=== PATIENT | female | born 1995 | race Caucasian/White ===

== ENCOUNTER 2019-03-13 07:45 | Emergency (ER) | payer BC, OTHER ==
[~2019-03-13] VITALS: Ht 170.2 cm; Wt 61.4 kg
[2019-03-13] MEDS ORDERED: SRONYX PO (08:03)
[2019-03-13] MEDS ORDERED: ONDANSETRON 4MG/2ML VIAL (J2405) IV ONE (09:00)
[2019-03-13] MEDS ORDERED: KETOROLAC 30 MG/ML VIAL (J1885) IV ONE (09:00)
[2019-03-13] MEDS ORDERED: NS 1,000 ML IV ONE (09:00)
[2019-03-13 09:35] LABS: BASO % 0.3 % (0.0-1.0); EOS % 0.1 % (0.0-3.0); HEMATOCRIT 39.9 % (36.0-47.0); HEMOGLOBIN 13.9 g/dl (12.0-15.5); LYMPH % 7.2 % (24.0-44.0); MEAN CORPUSCULAR HEMOGLOBIN 30.8 pg (27.0-33.0); MEAN CORPUSCULAR HGB CONC 34.8 g/dl (32.0-36.5); MEAN CORPUSCULAR VOLUME 88.5 fl (80.0-96.0); MONO # 1.1 10^3/uL (0.0-0.8); MONO % 7.9 % (0.0-5.0); NEUTROPHILS # 11.6 10^3/uL (1.8-7.7); NEUTROPHILS % 84.1 % (36.0-66.0); PLATELET COUNT, AUTOMATED 200 10^3/uL (150-450); RED BLOOD COUNT 4.51 10^6/uL (4.00-5.40); WHITE BLOOD COUNT 13.8 10^3/uL (4.0-10.0)
[2019-03-13 10:02] LABS: ALBUMIN 3.9 GM/DL (3.2-5.2); ALT/SGPT 17 U/L (12-78); BILIRUBIN,DIRECT 0.2 MG/DL (0.0-0.2); BILIRUBIN,TOTAL 0.7 MG/DL (0.2-1.0); BLOOD UREA NITROGEN 9 MG/DL (7-18); CALCIUM LEVEL 8.8 MG/DL (8.5-10.1); CARBON DIOXIDE LEVEL 27 MEQ/L (21-32); CHLORIDE LEVEL 104 MEQ/L (98-107); CREATININE FOR GFR 0.72 MG/DL (0.55-1.30); GLOMERULAR FILTRATION RATE > 60.0 (>60); GLUCOSE, FASTING 100 MG/DL (70-100); LIPASE 85 U/L (73-393); SODIUM LEVEL 137 MEQ/L (136-145); TOTAL PROTEIN 6.8 GM/DL (6.4-8.2)
[2019-03-13] MEDS ORDERED: ISOVUE-370 76% 100ML VIAL (Q9967) As Ordered ONE (10:27)
[2019-03-13] MEDS ORDERED: MORPHINE 4 MG/ML 1ML VIAL/SYRINGE (J2270) IV ONE (10:30)
[2019-03-13] MEDS ORDERED: MORPHINE 2 MG/ML 1ML SYRINGE (J2270) IV ONE (10:45)
--- NOTE | 2019-03-13 11:35 | REP ---
CT ABDOMEN/PELVIS WITH IV CONTRAST: TECHNIQUE: Axial contrast enhanced images from the lung bases to the pubic symphysis using 100 mL Isovue 370 intravenous contrast material with multiplanar reformations. Visualized lung bases demonstrate no infiltrate. There is a subcentimeter cyst in the right lobe of the liver. The spleen, adrenals, pancreas, and kidneys appear unremarkable. There is no hydronephrosis bilaterally. There is no abdominal aortic aneurysm. I see no adenopathy. There is no free air. There is trace free fluid in the pelvis, which is likely physiologic. I see no evidence of bowel wall thickening. The appendix appears normal. I see no evidence of a pelvic mass. There is a cyst in the left vaginal wall which is oval in shape and measures approximately 2.9 x 1.5 cm. Urinary bladder is mildly distended and grossly unremarkable. IMPRESSION: No free air. Trace free fluid in the pelvis is likely physiologic. No evidence of appendicitis. Appendix appears normal. No gross bowel wall thickening. Subcentimeter cyst in the liver. Left vaginal wall cyst. Electronically Signed by David Chan MD 03/13/2019 02:40 P
--- NOTE | 2019-03-13 12:14 | REP ---
Pelvic ultrasound including transabdominal, endovaginal and Doppler ultrasound assessment for right sided pelvic pain: Comparison is the abdomen and pelvis CT performed earlier this same date. The uterus is anteverted and normal size measuring 6.9 x 3.7 x 5.4 cm. The endometrium is not thickened measuring 3.1 mm. Right ovary: The right ovary is normal size measuring 3.0 x 1.8 x 3.4 cm. There is no dominant right ovarian mass or cyst. There is right ovarian vascular flow with the Doppler resistive index of the parenchymal arteries measuring 0.57. Left ovary: The left ovary is normal size measuring 3.0 x 2.3 x 2.4 cm. There is no dominant left ovarian mass or cyst. There is left ovarian vascular flow with the Doppler resistive index of the parenchymal arteries measuring 0.64. There is a trace of free fluid in the pelvis. Impression: There is vascular flow in both ovaries. There are no dominant ovarian masses or cysts. There is a trace of free fluid in the pelvis. Electronically Signed by David Mcguire MD 03/13/2019 12:06 P
[2019-03-13 14:49] LABS: CHLAMYDIA DNA AMPLIFICATION NEGATIVE (NEGATIVE); GC DNA AMPLIFICATION NEGATIVE (NEGATIVE)
[2019-03-13] MEDS ORDERED: ZOFR8TAB24 PO (15:07)
[2019-03-13 15:10] VITALS: BP 127/77
== END 2019-03-13 15:23 | disposition home or self-care (01) ==
LOC: M ED 07:45
DX: N89.8 Other specified noninflammatory disorders of vagina (principal); R10.2 Pelvic and perineal pain; R10.31 Right lower quadrant pain; Z86.19 Personal history of other infectious and parasitic diseases; Z87.448 Personal history of other diseases of urinary system; K76.89 Other specified diseases of liver; Z79.899 Other long term (current) drug therapy
CPT/HCPCS: 36415; 74177; 76830; 76856; 80048; 80076; 81001; 83605; 83690; 84702; 85025; 87210; 87252; 87661; 87880; 93976; 96361; 96374; 96375; 99284; J1885; J2270; J2405; Q9967

== ENCOUNTER 2021-12-12 19:00 | Emergency (ER) | payer BC, OTHER ==
[~2021-12-12] VITALS: Ht 170.2 cm; Wt 64.6 kg
[~2021-12-12 19:00] MED LIST: SRONYX PO; ZOFR8TAB24 PO
[2021-12-12] MEDS ORDERED: MEDR150I12 (19:28)
[2021-12-12] MEDS ORDERED: NS 1,000 ML IV ONE (20:30)
[2021-12-12] MEDS ORDERED: ONDANSETRON 4MG/2ML VIAL As Ordered ONE (20:57)
[2021-12-12 20:59] LABS: BASO % 0.6 % (0.0-1.0); EOS # 0.1 10^3/uL (0.0-0.5); EOS % 0.8 % (0.0-3.0); HEMATOCRIT 41.2 % (36.0-47.0); HEMOGLOBIN 14.7 g/dl (12.0-15.5); LYMPH # 1.8 10^3/uL (1.5-5.0); LYMPH % 25.6 % (24.0-44.0); MEAN CORPUSCULAR HEMOGLOBIN 30.9 pg (27.0-33.0); MEAN CORPUSCULAR HGB CONC 35.7 g/dl (32.0-36.5); MEAN CORPUSCULAR VOLUME 86.6 fl (80.0-96.0); MONO # 0.6 10^3/uL (0.0-0.8); MONO % 8.9 % (2.0-8.0); NEUTROPHILS # 4.5 10^3/uL (1.5-8.5); NEUTROPHILS % 63.7 % (36.0-66.0); PLATELET COUNT, AUTOMATED 293 10^3/uL (150-450); RED BLOOD COUNT 4.76 10^6/uL (4.00-5.40); WHITE BLOOD COUNT 7.1 10^3/uL (4.0-10.0)
[2021-12-12] MEDS ORDERED: ONDANSETRON 4MG/2ML VIAL IV ONE (21:10)
[2021-12-12 21:17] LABS: INR 1.03; PROTHROMBIN TIME 13.9 SECONDS (12.7-14.5)
[2021-12-12 21:18] LABS: PARTIAL THROMBOPLASTIN TIME 27.1 SECONDS (25.9-37.0)
[2021-12-12 21:21] LABS: D-DIMER QUANT < 270 ng/ml (<500)
[2021-12-12 21:36] LABS: BLOOD UREA NITROGEN 9 MG/DL (7-18); CALCIUM LEVEL 9.6 MG/DL (8.5-10.1); CARBON DIOXIDE LEVEL 26 MEQ/L (21-32); CHLORIDE LEVEL 106 MEQ/L (98-107); FREE T4 1.24 NG/DL (0.76-1.46); GLOMERULAR FILTRATION RATE > 60.0 (>60); GLUCOSE, FASTING 91 MG/DL (70-100); POTASSIUM SERUM 3.7 MEQ/L (3.5-5.1); SODIUM LEVEL 141 MEQ/L (136-145); THYROID STIMULATING HORMONE 0.805 uIU/ML (0.358-3.740)
[2021-12-12 22:28] VITALS: BP 132/74
== END 2021-12-12 22:30 | disposition home or self-care (01) ==
LOC: M ED 19:00
DX: J06.9 Acute upper respiratory infection, unspecified (principal); R19.7 Diarrhea, unspecified; R00.0 Tachycardia, unspecified
CPT/HCPCS: 71046; 80048; 84439; 84443; 84484; 84702; 85025; 85379; 85610; 85730; 87428; 87880; 93005; 96361; 96374; 99284; J2405

== ENCOUNTER → 2024-06-17 | Outpatient (REF) | payer OTHER ==
[~2024-06-17] MED LIST changes: +MEDR150I12
[2024-06-17 18:09] LABS: APPEARANCE, URINE HAZY (CLEAR); BACTERIA, URINE AUTO 1+ (NEGATIVE); BILIRUBIN, URINE AUTO NEGATIVE (NEGATIVE); BLOOD, URINE BLOOD NEGATIVE (NEGATIVE); COLOR, URINE YELLOW (YELLOW); GLUCOSE, URINE (UA) AUTO NEGATIVE (NEGATIVE); KETONE, URINE AUTO NEGATIVE (NEGATIVE); LEUKOCYTE ESTERASE, URINE AUTO NEGATIVE (NEGATIVE); MUCUS, URINE SMALL (NEGATIVE); NITRITE, URINE AUTO NEGATIVE (NEGATIVE); PROTEIN, URINE AUTO NEGATIVE (NEGATIVE); RBC, URINE AUTO 1 /HPF (0-3); SPECIFIC GRAVITY URINE AUTO 1.023 (1.002-1.035); SQUAMOUS EPITHELIAL CELL UR AU 9 /HPF (0-6); UROBILINOGEN, URINE AUTO 0.2 mg/dL (0.0-2.0); WBC, URINE AUTO 1 /HPF (0-3)
[2024-06-17 20:14] LABS: GC DNA AMPLIFICATION NEGATIVE (NEGATIVE)
[2024-06-17 21:35] LABS: Trichomonas vaginalis (AMP) NOT DETECTED (NEGATIVE)
== END ==
LOC: M LAB REF 16:28
PROVIDERS: ATTEND Physician Assistant
DX: N39.0 Urinary tract infection, site not specified (principal)

== ENCOUNTER 2024-09-04 10:54 | Emergency (ER) | payer OTHER ==
[~2024-09-04] VITALS: Ht 170.2 cm; Wt 65.6 kg
[2024-09-04 12:12] LABS: BASO % 0.3 % (0.0-1.0); EOS % 0.1 % (0.0-3.0); HEMATOCRIT 41.1 % (36.0-47.0); HEMOGLOBIN 14.8 g/dl (12.0-15.5); LYMPH # 0.9 10^3/uL (1.5-5.0); LYMPH % 11.1 % (24.0-44.0); MEAN CORPUSCULAR HEMOGLOBIN 31.6 pg (27.0-33.0); MEAN CORPUSCULAR VOLUME 87.8 fl (80.0-96.0); MONO # 0.6 10^3/uL (0.0-0.8); MONO % 7.2 % (2.0-8.0); NEUTROPHILS # 6.3 10^3/uL (1.5-8.5); PLATELET COUNT, AUTOMATED 269 10^3/uL (150-450); RED BLOOD COUNT 4.68 10^6/uL (4.00-5.40); WHITE BLOOD COUNT 7.8 10^3/uL (4.0-10.0)
[2024-09-04 12:59] LABS: ALBUMIN 4.1 G/DL (3.2-5.2); BILIRUBIN,DIRECT 0.2 MG/DL (<0.4); BILIRUBIN,TOTAL 0.5 MG/DL (0.3-1.2); TOTAL PROTEIN 7.1 G/DL (5.7-8.2)
[2024-09-04 13:22] LABS: HCG, SERUM QUANTITATIVE 1696.7 MIU/ML (<4.2)
[2024-09-04] MEDS: ONDANSETRON 4MG 2ML VIAL IV ONE (13:22)
[2024-09-04] MEDS: NS (Normal Saline) 0.9% 1,000 ML IV ONE (13:22)
[2024-09-04] MEDS ORDERED: ONDA-282 PO (15:03)
[2024-09-04] MEDS ORDERED: REGL10TA6 PO (15:03)
[2024-09-04 15:16] VITALS: BP 115/63; TEMP 96.7; O2SAT 100
== END 2024-09-04 15:21 | disposition home or self-care (01) ==
LOC: M ED 10:54
DX: O99.611 Diseases of the digestive system complicating pregnancy, first trimester (principal); Z3A.00 Weeks of gestation of pregnancy not specified; Z79.899 Other long term (current) drug therapy
CPT/HCPCS: 80047; 80076; 83690; 84702; 85025; 87486; 87581; 87633; 87798; 96361; 96374; 99284; J2405

== ENCOUNTER → 2024-10-16 | Outpatient (REF) | payer OTHER ==
[~2024-10-16] MED LIST changes: +ONDA-282 PO; +REGL10TA6 PO
== END ==
LOC: M PLALAB 08:55
PROVIDERS: ATTEND Nurse Practitioner Family
DX: Z34.01 Encounter for supervision of normal first pregnancy, first trimester (principal)

== ENCOUNTER → 2024-10-21 | Outpatient (CLI) | payer OTHER ==
[2024-10-21 10:25] LABS: HEMATOCRIT 38.5 % (36.0-47.0); HEMOGLOBIN 13.8 g/dl (12.0-15.5); MEAN CORPUSCULAR HEMOGLOBIN 31.7 pg (27.0-33.0); MEAN CORPUSCULAR HGB CONC 35.8 g/dl (32.0-36.5); MEAN CORPUSCULAR VOLUME 88.3 fl (80.0-96.0); PLATELET COUNT, AUTOMATED 256 10^3/uL (150-450); RED BLOOD COUNT 4.36 10^6/uL (4.00-5.40); WHITE BLOOD COUNT 7.6 10^3/uL (4.0-10.0)
[2024-10-21 11:23] LABS: HIV 1&2 SCREEN NEGATIVE (NEGATIVE)
[2024-10-21 11:31] LABS: HEPATITIS C VIRUS ABY INDEX 0.03 INDEX (<0.8)
[2024-10-21 11:57] LABS: Trichomonas vaginalis (AMP) NOT DETECTED (NEGATIVE)
[2024-10-21 12:19] LABS: GC DNA AMPLIFICATION NEGATIVE (NEGATIVE)
== END ==
LOC: M PLALAB 08:07
PROVIDERS: ATTEND Nurse Practitioner Family
DX: Z31.430 Encounter of female for testing for genetic disease carrier status for procreative management (principal)

== ENCOUNTER → 2024-12-11 | Outpatient (CLI) | payer OTHER ==
[~2024-12-11] MED LIST changes: -MEDR150I12; +MEDR150I15
== END ==
LOC: M WHC 10:03
PROVIDERS: ATTEND Advanced Practice Midwife
DX: Z34.02 Encounter for supervision of normal first pregnancy, second trimester (principal); Z3A.18 18 weeks gestation of pregnancy

== ENCOUNTER → 2025-02-07 | Outpatient (CLI) | payer OTHER ==
[2025-02-07 15:46] LABS: GLUCOSE CHALLENGE TEST 1 HOUR 104 MG/DL (LESS THAN 140)
[2025-02-07 15:47] LABS: PLATELET COUNT, AUTOMATED 217 10^3/uL (150-450)
[2025-02-07 16:16] LABS: HIV 1&2 SCREEN NEGATIVE (NEGATIVE)
[2025-02-07 16:24] LABS: HEPATITIS C VIRUS ABY INDEX < 0.02 INDEX (<0.8)
[2025-02-07 16:45] LABS: Trichomonas vaginalis (AMP) NOT DETECTED (NEGATIVE)
[2025-02-07 17:08] LABS: GC DNA AMPLIFICATION NEGATIVE (NEGATIVE)
== END ==
LOC: M PLALAB 12:18
PROVIDERS: ATTEND Nurse Practitioner Family
DX: Z34.80 Encounter for supervision of other normal pregnancy, unspecified trimester (principal)

== ENCOUNTER → 2025-04-18 | Outpatient (REF) | payer OTHER ==
[~2025-04-18] MED LIST changes: +PRENTAB9 PO
== END ==
LOC: M PLALAB 09:09
PROVIDERS: ATTEND Student in an Organized Health Care Education/Training Program
DX: Z36.85 Encounter for antenatal screening for Streptococcus B (principal); Z3A.37 37 weeks gestation of pregnancy

== ENCOUNTER 2025-04-29 18:57 | Emergency (ER) | payer OTHER ==
[~2025-04-29 18:57] MED LIST changes: -PRENTAB9 PO
== END 2025-04-29 19:19 | disposition admitted as inpatient to this hospital (09) ==
LOC: M ED 18:57
DX: Z53.21 Procedure and treatment not carried out due to patient leaving prior to being seen by health care provider (principal)

== ENCOUNTER 2025-04-29 19:07 | Outpatient (CLI) | payer OTHER ==
[~2025-04-29] VITALS: Ht 170.2 cm; Wt 88.9 kg
[2025-04-29] MEDS: LR 1,000 ML IV ONE (22:23)
== END 2025-04-29 23:19 | disposition home or self-care (01) ==
LOC: M LDO 19:07
PROVIDERS: ATTEND Student in an Organized Health Care Education/Training Program
DX: O47.1 False labor at or after 37 completed weeks of gestation (principal); Z3A.38 38 weeks gestation of pregnancy
CPT/HCPCS: 59025; G0463

== ENCOUNTER 2025-05-01 15:56 | Inpatient (IN) | payer OTHER ==
[~2025-05-01] VITALS: Ht 170.2 cm; Wt 88.5 kg
[2025-05-01] MEDS ORDERED: PRENTAB9 PO (16:18)
[2025-05-01] MEDS ORDERED: HOME MED LIST COMPLETE! XX SCH (16:20)
[2025-05-01 16:24] VITALS: BP 136/75; O2SAT 97
[2025-05-01] MEDS ORDERED: LIDOCAINE 1% MDV 20 ML VIAL INFIL PRN (16:40)
[2025-05-01] MEDS ORDERED: OXYTOCIN DRIP 30 UNITS in IV 1 EA IV PRN (16:40)
[2025-05-01] MEDS: miSOPROStol 50 MCG 1/2 TABLET SL SCH (16:53)
[2025-05-01 17:17] LABS: PLATELET COUNT, AUTOMATED 175 10^3/uL (150-450)
[2025-05-01 17:36] LABS: TOTAL PROTEIN,RANDOM URINE 79.5 MG/DL (0.0-14.0)
[2025-05-01 17:40] LABS: LDH LACTATE DEHYDROGENASE 230 U/L (120-246)
[2025-05-01 17:41] LABS: ALT/SGPT 9 U/L (7.0-40); AST/SGOT 19 U/L (<34); CREATININE FOR GFR 0.65 MG/DL (0.55-1.30); GLOMERULAR FILTRATION RATE > 90.0 (>60)
[2025-05-01 18:07] VITALS: BP 128/77
[2025-05-01 18:14] LABS: HIV 1&2 SCREEN NEGATIVE (NEGATIVE)
[2025-05-01 18:22] LABS: HEPATITIS C VIRUS ABY INDEX < 0.02 INDEX (<0.8)
[2025-05-01 19:30] VITALS: BP 134/74
[2025-05-01 20:53] VITALS: BP 123/70
[2025-05-01 22:01] VITALS: BP 122/67
[2025-05-01] MEDS: BUTORPHANOL 2 MG/ML 1 ML VIAL IV ONE (22:20)
[2025-05-02] VITALS (28 sets, daily range): BP systolic 118–150; BP diastolic 59–90
[2025-05-02] MEDS: BUTORPHANOL 2 MG/ML 1 ML VIAL IV ONE (04:00)
[2025-05-02] MEDS ORDERED: OXYTOCIN DRIP 30 UNITS in IV 1 EA IV SCH (09:55)
[2025-05-02] MEDS ORDERED: NALOXONE INJ 0.4 MG/1 ML VIAL IV PRN (11:50)
[2025-05-02] MEDS ORDERED: EPIDURAL/PCA KEYS XX PRN (11:50)
[2025-05-02] MEDS ORDERED: diphenhydrAMINE 50 MG/ML VIAL IV PRN (11:50)
[2025-05-02] MEDS: FENTANYL/ROPIVACAINE/NACL BAG 100 ML EPIDURAL SCH (12:21)
[2025-05-02] MEDS: LR 1,000 ML IV SCH (12:21)
[2025-05-02] MEDS: LR 500 ML IV PRN (12:21)
[2025-05-03] VITALS (13 sets, daily range): BP systolic 123–146; BP diastolic 72–121; O2SAT 95
[2025-05-03] MEDS: ONDANSETRON 4MG 2ML VIAL IV PRN (00:15)
[2025-05-03] MEDS ORDERED: IBUPROFEN 600 MG TAB PO PRN (03:55)
[2025-05-03] MEDS ORDERED: ANUSOL HC CREAM 30 GM TOP PRN (03:55)
[2025-05-03] MEDS ORDERED: RHOGAM 300MCG (1500IU) INJ IM SCH (03:55)
[2025-05-03] MEDS ORDERED: MOM 30 ML SUSPENSION UDC PO PRN (03:55)
[2025-05-03] MEDS ORDERED: ACETAMINOPHEN 325 MG TAB PO PRN (03:55)
[2025-05-03] MEDS ORDERED: METHYLERGONOVINE MALEATE 0.2 MG TAB PO PRN (03:55)
[2025-05-03] MEDS ORDERED: CALCIUM CARBONATE 500 MG CHEW U/D PO PRN (03:55)
[2025-05-03] MEDS ORDERED: DOCUSATE SODIUM 100 MG CAPSULE PO PRN (03:55)
[2025-05-03] MEDS ORDERED: ONDANSETRON 4MG 2ML VIAL IV PRN (03:55)
[2025-05-03] MEDS: IBUPROFEN 800 MG TAB PO PRN (04:10)
[2025-05-03] MEDS: PRENATAL VITAMINS CHEWABLE TABLET PO SCH (09:00)
[2025-05-03] MEDS: ACETAMINOPHEN 500 MG TAB PO PRN (10:30)
[2025-05-04 06:00] VITALS: BP 122/74; O2SAT 98
[2025-05-04 06:25] LABS: PLATELET COUNT, AUTOMATED 141 10^3/uL (150-450)
[2025-05-04] MEDS: DIBUCAINE 1% OINTMENT 30 GM TOP PRN (08:08)
[2025-05-04] MEDS: FLUZONE VACCINE TRI PF(25-26) 0.5ML SYRINGE IM.IMMUN ONE (12:00)
[2025-05-05] MEDS ORDERED: MEASLES,MUMPS,RUBELLA VACCINE INJ (MMR-II) SC.IMMUN ONE (09:00)
== END 2025-05-04 12:50 | disposition home or self-care (01) | DRG 768 ==
LOC: M LDI 15:56 → M OBS 05-03 05:30
PROVIDERS: ADMIT Specialist; ATTEND Advanced Practice Midwife
PROC: 3E0P7GC Introduction of Other Therapeutic Substance into Female Reproductive, Via Natural or Artificial Opening (ICD-10-PCS; 2025-05-01)
PROC: 10E0XZZ Delivery of Products of Conception, External Approach (ICD-10-PCS; principal; 2025-05-03)
PROC: 0T9 Urinary System, Drainage (ICD-10-PCS; 2025-05-03)
DX: O13.4 Gestational [pregnancy-induced] hypertension without significant proteinuria, complicating childbirth (principal); Z37.0 Single live birth; Z3A.38 38 weeks gestation of pregnancy; N36.8 Other specified disorders of urethra; O69.81X0 Labor and delivery complicated by cord around neck, without compression, not applicable or unspecified; O34.73 Maternal care for abnormality of vulva and perineum, third trimester